=== PATIENT | male | born 2000 | race Caucasian/White ===

== ENCOUNTER 2018-11-13 16:03 | Emergency (ER) | payer OTHER ==
[2018-11-13 16:10] VITALS: BP 148/100
[2018-11-13] MEDS ORDERED: fentaNYL 100 MCG/2 ML INJ ONE (16:36)
[2018-11-13] MEDS ORDERED: fentaNYL 100 MCG/2 ML INJ IVP ONE (16:39)
--- NOTE | 2018-11-13 16:50 | EDPHY ---
H & P Time Seen by Provider: 11/13/18 16:26 HPI/ROS: HPI Left shoulder injury. 18-year-old male. Right-hand dominant. Here with mother and brother. Patient was snowboarding. He was wearing a helmet. He fell and landed on an outstretched left upper extremity. He presents with complaint of isolated left shoulder pain. He reports that he has dislocated it several times in the past. He denies any loss of sensation or weakness in his hand. He states he did not hit his head. There was no loss of consciousness. He denies any neck pain. Denies other extremity pain. No other complaints. ROS: Constitutional: No fever, no chills. No weakness. Musculoskeletal: No back pain. No neck pain. As above. Skin: No rashes. No lacerations or abrasions. Neurological: No headache. No focal weakness or altered sensation. Past medical history: Previous history of dislocated left shoulder. Social history: Nonsmoker. No alcohol. Here with family. Physical Exam: General Appearance: Alert, no distress. This patient is responding to questions appropriately and in full sentences. This patient appears well- hydrated and well-nourished. Head: Normocephalic atraumatic. Eyes: Pupils equal and round no pallor or injection. No lid edema, erythema or injection. Left shoulder and upper extremity exam: Significant for a anterior inferior glenohumeral joint dislocation. The axillary nerve distribution is intact. The left upper extremity is neurovascularly intact. The clavicle is nontender on palpation. Neurological: Motor sensory function is grossly intact. Cranial nerves are normal. Gait is normal. Skin: Warm and dry, no rashes. Musculoskeletal: Neck is supple and nontender. No midline cervical, thoracic, lumbar tenderness on palpation. Extremities are symmetrical except. All joints range without pain or impingement except noted. Psychiatric: No agitation. No depression. Database: EKG: Imaging: Left shoulder x-ray series: Significant for anterior inferior glenohumeral joint dislocation. No evidence of clavicle fracture. No pneumothorax. Interpreted by me. Procedures: Procedure: Dislocation reduction. The left shoulder was reduced in the usual fashion without complications. Post reduction the patient's neurovascular exam is normal. Post reduction x-ray demonstrates reduction of the joint to the anatomic position. The procedure was performed by myself. Emergency department course: IV was placed. Patient was given 100 mcg of IV fentanyl. Triage vital signs reviewed. He is mildly hypertensive. Vital signs are otherwise normal. After reduction of left glenohumeral joint dislocation post reduction films were obtained as noted above. Left upper extremity was placed in a sling. He feels comfortable going home with his mother and brother. I discussed orthopedic follow-up. Return to emergency department precautions reviewed. All of his questions were answered. He was discharged from the emergency department in good condition. Differential Diagnosis: The differential diagnosis on this patient includes but is not limited to left glenohumeral joint dislocation. Clavicle fracture, pneumothorax, other significant traumatic injury unlikely. This represents a partial list of diagnoses considered. These considerations are based on history, physical exam , past history, reassessment and diagnostic testing. Smoking Status: Never smoked Constitutional: Initial Vital Signs Temperature (C) 36.5 C 11/13/18 16:08 Heart Rate 85 11/13/18 16:08 Respiratory Rate 20 11/13/18 16:08 Blood Pressure 148/100 H 11/13/18 16:08 O2 Sat (%) 96 11/13/18 16:08 O2 Delivery Mode Room Air Allergies/Adverse Reactions: Sulfa (Sulfonamide Antibiotics) Allergy (Verified 11/13/18 16:07) Medical Decision Making - Data Points Medications Given: Discontinued Medications Fentanyl (Sublimaze) 100 mcg IVP EDNOW ONE Stop: 11/13/18 16:40 Last Admin: 11/13/18 16:41 Dose: 100 mcg Departure - Departure Disposition: Home, Routine, Self-Care Clinical Impression: Dislocation of left shoulder joint Condition: Good Instructions: Shoulder Dislocation (ED) Additional Instructions: Read and follow provided instructions. Follow-up with Dr. Mike Machado of the Orthopedic service in 2-3 days for re- evaluation as discussed. Ibuprofen dosin mg every 6 hours with meals for the next 3 days only. Take only as needed for pain. Return to the emergency department for worsening pain, loss of sensation or weakness in your left arm or hand, discoloration or other serious concerns. Referrals: Mike Machado MD [Medical Doctor] - As per Instructions
== END 2018-11-13 17:00 | disposition home or self-care (01) ==
PROC: 0RSKXZZ Reposition Left Shoulder Joint, External Approach (ICD-10-PCS; principal; 2018-11-13)
DX: S43.005A Unspecified dislocation of left shoulder joint, initial encounter (principal); V00.311A Fall from snowboard, initial encounter; Y92.9 Unspecified place or not applicable; Y93.9 Activity, unspecified; Y99.9 Unspecified external cause status; Z88.2 Allergy status to sulfonamides
CPT/HCPCS: 96374; A4565; J3010